=== PATIENT | female | born 1980 | race Caucasian/White ===

== ENCOUNTER 2022-11-26 12:02 | Emergency (ER) | payer OTHER, SELFPAY ==
[2022-11-26 12:14] VITALS: BP 124/95; PULSE 90; RESP 20; TEMP 36.6; O2SAT 98; BMI 33.4
[2022-11-26 12:59] LABS: Internal Control Within Normal Limits; Strep A Antigen Screen Negative
--- NOTE | 2022-11-26 14:59 | ED.URI1 ---
HPI - URI/Sore Throat General Chief Complaint: Upper Respiratory Infection Stated Complaint: sore throat Time Seen by Provider: 11/26/22 14:59 Source: patient History of Present Illness HPI Narrative: Patient presents to emergency department complaining of nasal congestion, runny nose and sore throat. She states she has a cough which is nonproductive. She denies any difficulty swallowing but it hurts when she swallows. She's had chills denies any fever. Symptoms have been ongoing for since yesterday morning. She denies any wheezing or difficulty breathing. She denies any chest pain. She denies any nausea, vomiting, diarrhea, constipation, abdominal pain. She denies any flank pain, hematuria, dysuria. Patient has a history of ALLERGIES. She denies her eyes being itchy or having pain. She denies any rashes. Related Data Previous Rx's Medication Instructions Recorded cetirizine 10 mg tablet (Zyrtec) 10 mg PO DAILY PRN congestion #20 11/26/22 tabs fluticasone propionate 50 1 spray intranasal DAILY PRN nasal 11/26/22 mcg/actuation nasal congestion #16 grams spray,suspension (Flonase Allergy Relief) Allergies Allergy/AdvReac Type Severity Reaction Status Date / Time No Known Drug Allergies Allergy Verified 11/26/22 12:13 Review of Systems ROS Narrative ROS: Unless otherwise stated in this report the patient's positive and negative responses for review of systems for constitutional, eyes, ENT, cardiovascular, respiratory, gastrointestinal, neurological, , musculoskeletal and integument systems and related systems to the presenting problem are either stated in the history of present illness or were not pertinent or were negative for the symptoms and/or complaints related to the presenting medical problem. [facility] Social History Smoking status: Heavy tobacco smoker Exam Narrative Exam Narrative: Nurses notes and vital signs reviewed and patient is not hypoxic. General: Nontoxic, Well-appearing and in no apparent distress. Skin: Warm, dry, no pallor noted. No Rash Head: Normocephalic, atraumatic. Neck: Supple, non-tender. Eye: Pupils are equal, round and EOMI. No scleral icterus. Ears, Nose, Mouth, and Throat: TM clear, Mild posterior oropharynx erythema Postnasal drip, nasal mucosal hypertrophy, uvula is mid-line Oral mucosa is moist, Bilateral maxillary sinus pressure mild erythema noted. Mild tenderness to palpation. Cardiovascular: Regular Rate and Rhythm without murmur, gallop or rub. Respiratory: No accessory muscle use or respiratory distress. Lungs are clear to auscultation, no wheezing, rales or rhonchi Chest Wall: no tenderness Back: No midline thoracic or lumbar vertebral tenderness. No CVA tenderness Musculoskeletal: normal ROM, no calf or popliteal tenderness, no lower extremity edema/swelling GI: Abdomen is soft, non-distended. Normal bowel sounds. No masses appreciated. No tenderness to palpation. No rebound, guarding, or rigidity noted. Neurological: A&O x4. No cranial nerve dysfunction observed. No truncal ataxia. Moves all extremities. Sensation intact. Psychiatric: Cooperative and interactive. Normal mood and affect. Constitutional Vital Signs - 24 hr 11/26/22 12:14 Temperature 98 F Pulse Rate [Monitor] 90 Respiratory Rate 20 Blood Pressure [Left Arm] 124/95 H Pulse Oximetry 98 Oxygen Delivery Method Room Air Course Vital Signs Vital signs: Vital Signs Temperature 98 F 11/26/22 12:14 Pulse Rate 90 11/26/22 12:14 Respiratory Rate 20 11/26/22 12:14 Blood Pressure 124/95 H 11/26/22 12:14 Pulse Oximetry 98 11/26/22 12:14 Oxygen Delivery Method Room Air 11/26/22 12:14 Temperature 97.7 F 11/26/22 15:04 Pulse Rate 71 11/26/22 15:04 Respiratory Rate 16 11/26/22 15:08 Blood Pressure 151/103 H 11/26/22 15:04 Pulse Oximetry 98 11/26/22 15:08 Oxygen Delivery Method Room Air 11/26/22 15:08 MDM - URI/Sore Throat MDM Narrative Medical decision making narrative: The results discussed with patient. Patient wanted to make sure she did not have strep. There were no subsequent sick contacts. She was advised to take Zyrtec and Flonase. History and physical consistent with a viral etiology. Versus ALLERGIC rhinitis. The patient was given a work note. At this time the patient is without objective evidence of an acute process requiring hospitalization or inpatient management. The patient has remained hemodynamically stable. No additional indication for emergent studies at this time. I answered all questions. Discussed discharge instructions including standard anticipatory guidance and what should prompt a return to the emergency department, including if they get worse are not getting better or develops any new or concerning symptoms. I've given them specific time frame in which to follow-up, and who to follow-up with. The patient demonstrates understanding. Patient is nontoxic and stable for discharge with outpatient follow-up. This note was created with the assistance of a speech recognition program. Although the intention is to generate documents that actually reflects the content of the visit, no guarantees can be provided that every mistake has been identified and corrected by editing. Differential Diagnosis Differential diagnosis: Likely upper respiratory infection, otitis media, sinusitis, viral infection, bronchitis, influenza and pharyngitis Medical Records Attestation: I reviewed the patient's medical records. Lab Data Attestation: I reviewed the patient's lab results. Labs: Lab Results 11/26/22 Range/Units 12:20 Streptococcus Screen Negative Discharge Plan Discharge Chief Complaint: Upper Respiratory Infection Clinical Impression: Upper respiratory infection, Pharyngitis Patient Disposition: Home, Self-Care Time of Disposition Decision: 15:00 Condition: Good Prescriptions / Home Meds: New fluticasone propionate [Flonase Allergy Relief] 50 mcg/actuation spray,suspension 1 spray intranasal DAILY PRN (Reason: nasal congestion) Qty: 16 0RF Rx Instructions: administer into each nostril cetirizine [Zyrtec] 10 mg tablet 10 mg PO DAILY PRN (Reason: congestion) Qty: 20 0RF Instructions: Pharyngitis (ED) Stand Alone Forms: Portal Instructions Referrals: Physician,Non-Staff, MD [Primary Care Provider] - 1 week Follow Up Appointments: pcp list Discharge Date/Time: 11/26/22 15:08
[2022-11-26 15:04] VITALS: BP 151/103; PULSE 71; RESP 16; TEMP 36.5; O2SAT 96
[2022-11-26 15:08] VITALS: RESP 16; O2SAT 98
== END 2022-11-26 15:08 | disposition home or self-care (01) ==
PROVIDERS: Emergency Provider Emergency Medicine
DX: J02.9 Acute pharyngitis, unspecified (principal); J06.9 Acute upper respiratory infection, unspecified; F17.210 Nicotine dependence, cigarettes, uncomplicated
CPT/HCPCS: 87081; 87804; 87880; 99283

== ENCOUNTER 2023-05-15 09:46 | Emergency (ER) | payer OTHER, SELFPAY ==
[2023-05-15 09:51] VITALS: BP 122/89; PULSE 109; RESP 18; TEMP 36.9; O2SAT 97; BMI 32.2
--- NOTE | 2023-05-15 10:24 | CT_ITS ---
The [address] [address] Patient Name: ELIANA TOBAR MRN: [id number] date: 1980 Sex: F Assigned Patient Location: ER Current Patient Location: ER Accession/Order Number: [id number] Exam Date: 05/15/2023 10:55 Report Date: 05/15/2023 11:46 At the request of: LARISA GREGORY Procedure: CT abdomen pelvis w con EXAMINATION: CT abdomen pelvis w con, 05/15/2023 10:55 AM EST HISTORY: left sided abdominal pain, vomiting, diarrhea COMPARISON: None. TECHNIQUE: CT of the abdomen, and pelvis was performed following administration of IV contrast. Oral contrast was not administered prior to the examination. Dose reduction techniques were achieved by using automated exposure control and/or adjustment of mA and/or kV according to patient size and/or use of iterative reconstruction technique. FINDINGS: Lung Bases: Normal. Liver: Normal size and contour. Question steatosis. Biliary tree: Normal. Gallbladder: Normal. Spleen: Normal. Pancreas: Normal. Adrenal glands: Normal. Kidneys and ureters: Normal. Bladder: Normal. Reproductive organs: Hysterectomy. Few prominent right-sided likely physiologic ovarian cysts. No suspicious adnexal mass. Gastrointestinal tract: Nondilated. The appendix is normal. Peritoneum/retroperitoneum: No free fluid or gas. Vasculature: Minimal atherosclerosis without aneurysm. Lymph nodes: Normal. Abdominal wall: No acute findings Musculoskeletal: Degenerative change of the spine. CT/CT abdomen pelvis w con IMPRESSION: 1. No acute findings within the abdomen and pelvis. Electronically authenticated by: KATHRYN GARCIA Date: 05/15/2023 11:46
--- NOTE | 2023-05-15 10:25 | ED_ITS ---
HPI - Abdominal Pain General Chief Complaint: Abdominal Pain Stated Complaint: ABDOMINAL PAIN Time Seen by Provider: 05/15/23 09:57 Source: patient Mode of arrival: walk-in Limitations: no limitations History of Present Illness HPI narrative: Patient developed generalized abdominal pain3 days ago. The next day she developed nausea and vomiting throughout the day yesterday. She also began having diarrhea yesterday, when the pain became focal in the left side, especially the LUQ. No urinary symptoms. PSHx includes appendectomy and hysterectomy. No fever or chills. She last ate 2 days ago. Related Data Previous Rx's Medication Instructions Recorded cetirizine 10 mg tablet (Zyrtec) 10 mg PO DAILY PRN congestion #20 11/26/22 tabs fluticasone propionate 50 1 spray intranasal DAILY PRN nasal 11/26/22 mcg/actuation nasal congestion #16 grams spray,suspension (Flonase Allergy Relief) hyoscyamine sulfate 0.125 mg 0.125 mg PO Q6H PRN abdominal pain 05/15/23 sublingual tablet (Levsin/SL) #20 tabs ondansetron 4 mg disintegrating 4 mg PO Q6H PRN nausea and 05/15/23 tablet vomiting #20 tabs Allergies Allergy/AdvReac Type Severity Reaction Status Date / Time No Known Drug Allergies Allergy Verified 05/15/23 09:54 [facility] Social History Smoking status: Current every day smoker Exam Narrative Exam Narrative: Nurses notes and vital signs reviewed and patient is not hypoxic. afebrile General: Well-appearing and in no apparent distress. Skin: Warm, dry, no pallor noted. No rash. Head: Normocephalic, atraumatic. Neck: Supple, non-tender. Eye: Pupils are equal, round and EOMI. No scleral icterus. Ears, Nose, Mouth, and Throat: Oral mucosa is dry Cardiovascular: Tachycardia. Respiratory: No accessory muscle use or respiratory distress. Lungs are clear to auscultation, no wheezing, rales or rhonchi Back: No CVA tenderness Musculoskeletal: normal ROM GI: Abdomen is soft, non-distended. Normal bowel sounds. No masses appreciated. Left sided tenderness to palpation. No rebound, guarding, or rigidity noted. Neurological: A&O x4. No cranial nerve dysfunction observed. No truncal ataxia. Moves all extremities. Sensation intact. Psychiatric: Cooperative and interactive. Normal mood and affect. Constitutional Vital Signs, click to edit/add: Last Vital Signs Temp 98.4 F 05/15/23 09:51 Pulse 109 H 05/15/23 09:51 Resp 18 05/15/23 09:51 BP 122/89 05/15/23 09:51 Pulse Ox 97 05/15/23 09:51 O2 Del Method Room Air 05/15/23 09:51 Course Vital Signs Vital signs: Vital Signs Temperature 98.4 F 05/15/23 09:51 Pulse Rate 109 H 05/15/23 09:51 Respiratory Rate 18 05/15/23 09:51 Blood Pressure 122/89 05/15/23 09:51 Pulse Oximetry 97 05/15/23 09:51 Oxygen Delivery Method Room Air 05/15/23 09:51 Temperature 98.4 F 05/15/23 09:51 Pulse Rate 109 H 05/15/23 09:51 Respiratory Rate 18 05/15/23 09:51 Blood Pressure 122/89 05/15/23 09:51 Pulse Oximetry 97 05/15/23 09:51 Oxygen Delivery Method Room Air 05/15/23 09:51 MDM - Abdominal Pain MDM Narrative Medical decision making narrative: peripheral IV established. Blood was drawn and sent for testing. Urine also obtained. Patient was given normal saline IV fluid, IV Zofran and sublingual Levsin. WBC 11k. Unremarkable CMP. UA appears to be a contaminated sample. CT does not reveal any acute findings to account for the patient's symptoms, per radiologist reading. Results discussed with the patient and she was given reassurance. She felt better after ED treatment. She was discharged home with prescriptions for Levsin and Zofran. Discussed BRAT diet and reasons to return to the ED. Lab Data Attestation: I reviewed the patient's lab results. Labs: Lab Results 05/15/23 Range/Units 10:00 WBC 11.2 H (4.0-11.0) 10^3/uL RBC 4.76 (4.20-5.40) 10^6/uL Hgb 15.0 (12.0-16.0) g/dL Hct 45.1 (36.0-48.0) % MCV 94.7 (81.0-99.0) fL MCH 31.5 (26.7-34.0) pg MCHC 33.3 (29.9-35.2) g/dL RDW 12.2 (11.0-15.0) % Plt Count 276 (150-450) 10^3/uL MPV 11.5 (9.5-13.5) fL Neut % (Auto) 62.8 (43.0-75.0) % Lymph % (Auto) 29.6 (20.5-60.0) % [place] % (Auto) 6.1 (1.7-12.0) % Eos % (Auto) 0.8 L (0.9-7.0) % Baso % (Auto) 0.4 (0.2-2.0) % Neut # (Auto) 7.0 H (1.4-6.5) 10^3/uL Lymph # (Auto) 3.3 (1.2-3.8) 10^3/uL [place] # (Auto) 0.7 (0.3-0.8) 10^3/uL Eos # (Auto) 0.1 (0.0-0.7) 10^3/uL Baso # (Auto) 0.0 (0.0-0.1) 10^3/uL Abs Immat Gran (auto) 0.03 (0.00-0.03) 10^3/uL Imm/Tot Granulo (auto) 0.3 (0.0-0.5) % Sodium 137 (136-145) mmol/L Potassium 3.9 (3.5-5.1) mmol/L Chloride 100 (98-107) mmol/L Carbon Dioxide 23.7 (21.0-32.0) mmol/L Anion Gap 17.2 BUN 10.0 (7.0-18.0) mg/dL Creatinine 0.91 (0.55-1.02) mg/dL Est GFR ( Amer) >60 (>=60) Est GFR (Non-Af Amer) >60 (>=60) BUN/Creatinine Ratio 11.0 Glucose 144 H (74-106) mg/dL Calcium 8.6 (8.5-10.1) mg/dL Total Bilirubin 0.6 (0.2-1.0) mg/dL AST 16 (15-37) U/L ALT 20 (14-59) U/L Alkaline Phosphatase 64 (46-116) U/L Total Protein 7.4 (6.4-8.2) g/dL Albumin 3.8 (3.4-5.0) g/dL Globulin 3.6 g/dL Albumin/Globulin Ratio 1.1 Lipase 41.0 (16.0-77.0) U/L Urine Color Yellow (YELLOW) Urine Clarity Clear (CLEAR) Urine pH 6.0 (5.0-9.0) Ur Specific [place] >=1.030 A (1.005-1.025) Urine Protein Negative (NEG/TRACE) mg/dL Urine Glucose (UA) Negative (NEGATIVE) mg/dL Urine Ketones Negative (NEGATIVE) mg/dL Urine Occult Blood Moderate A (NEGATIVE) Urine Nitrite Negative (NEGATIVE) Urine Bilirubin Negative (NEGATIVE) Urine Urobilinogen 0.2 (0.2-1.0) EU/dL Ur Leukocyte Esterase Negative (NEGATIVE) Urine RBC 2-5 A (0-2) #/HPF Urine WBC None seen (NONE SEEN) #/HPF Ur Squamous Epith Cells Moderate A (NONE/RARE) #/LPF Urine Bacteria Trace A (NONE SEEN) #/HPF Urine Mucus None seen (NONE SEEN) Ur Culture Indicated? No Imaging Data CT scan - abdomen: Radiologist's impression: Patient Name: ELIANA TBOAR MRN: [id number] date: 1980 Sex: F Assigned Patient Location: Current Patient Location: Accession/Order Number: [id number] Exam Date: 05/15/2023 10:55 Report Date: 05/15/2023 11:46 At the request of: LARISA GREGORY Procedure: CT abdomen pelvis w con EXAMINATION: CT abdomen pelvis w con, 05/15/2023 10:55 AM EST HISTORY: left sided abdominal pain, vomiting, diarrhea COMPARISON: None. TECHNIQUE: CT of the abdomen, and pelvis was performed following administration of IV contrast. Oral contrast was not administered prior to the examination. Dose reduction techniques were achieved by using automated exposure control and/or adjustment of mA and/or kV according to patient size and/or use of iterative reconstruction technique. FINDINGS: Lung Bases: Normal. Liver: Normal size and contour. Question steatosis. Biliary tree: Normal. Gallbladder: Normal. Spleen: Normal. Pancreas: Normal. Adrenal glands: Normal. Kidneys and ureters: Normal. Bladder: Normal. Reproductive organs: Hysterectomy. Few prominent right-sided likely physiologic ovarian cysts. No suspicious adnexal mass. Gastrointestinal tract: Nondilated. The appendix is normal. Peritoneum/retroperitoneum: No free fluid or gas. Vasculature: Minimal atherosclerosis without aneurysm. Lymph nodes: Normal. Abdominal wall: No acute findings Musculoskeletal: Degenerative change of the spine. IMPRESSION: 1. No acute findings within the abdomen and pelvis. Electronically authenticated by: KATHRYN GARCIA Date: 05/15/2023 11:46 Discharge Plan Discharge Chief Complaint: Abdominal Pain Clinical Impression: Gastroenteritis Patient Disposition: Home, Self-Care Time of Disposition Decision: 12:03 Prescriptions / Home Meds: New ondansetron 4 mg tablet,disintegrating 4 mg PO Q6H PRN (Reason: nausea and vomiting) Qty: 20 0RF hyoscyamine sulfate [Levsin/SL] 0.125 mg tablet, sublingual 0.125 mg PO Q6H PRN (Reason: abdominal pain) Qty: 20 0RF No Action fluticasone propionate [Flonase Allergy Relief] 50 mcg/actuation spray,suspension 1 spray intranasal DAILY PRN (Reason: nasal congestion) Qty: 16 0RF Rx Instructions: administer into each nostril cetirizine [Zyrtec] 10 mg tablet 10 mg PO DAILY PRN (Reason: congestion) Qty: 20 0RF Instructions: Acute Nausea and Vomiting (ED), Acute Diarrhea (ED) Stand Alone Forms: Portal Instructions Referrals: Physician,Non-Staff, MD [Primary Care Provider] - 1 week
[2023-05-15] MEDS: 0.9 % SODIUM CHLORIDE 1,000 ML 999 ML IV (10:31)
[2023-05-15] MEDS: HYOSCYAMINE SULFATE 0.125 MG TAB.SUBL SL (10:32)
[2023-05-15] MEDS: ONDANSETRON PF 4 MG/2 ML VIAL IV (10:32)
[2023-05-15 10:43] LABS: Bilirubin Urine NEGATIVE (NEGATIVE); Blood Urine MODERATE (NEGATIVE); Clarity Urine CLEAR (CLEAR); Color Urine YELLOW (YELLOW); Glucose Urine UA NEGATIVE (NEGATIVE); Ketones Urine NEGATIVE (NEGATIVE); Leukocyte Esterase Urine NEGATIVE (NEGATIVE); Nitrite Urine NEGATIVE (NEGATIVE); Protein Urine NEGATIVE (NEG/TRACE); Specific Gravity Urine >=1.030 (1.005-1.025); Urobilinogen Urine 0.2 EU/dL (0.2-1.0)
[2023-05-15 10:56] LABS: Basophils Percent Auto 0.4 % (0.2-2.0); Eosinophils Absolute Auto 0.1 10^3/uL (0.0-0.7); Eosinophils Percent Auto 0.8 % (0.9-7.0); Hematocrit 45.1 % (36.0-48.0); Immature Granulocytes Abs Auto 0.03 10^3/uL (0.00-0.03); Immature Granulocytes Pct Auto 0.3 % (0.0-0.5); Lymphocytes Absolute Auto 3.3 10^3/uL (1.2-3.8); Lymphocytes Percent Auto 29.6 % (20.5-60.0); Mean Corpuscular HGB Conc 33.3 g/dL (29.9-35.2); Mean Corpuscular Hemoglobin 31.5 pg (26.7-34.0); Mean Corpuscular Volume 94.7 fL (81.0-99.0); Mean Platelet Volume 11.5 fL (9.5-13.5); Monocytes Absolute Auto 0.7 10^3/uL (0.3-0.8); Monocytes Percent Auto 6.1 % (1.7-12.0); Neutrophils Percent Auto 62.8 % (43.0-75.0); Platelet Count 276 10^3/uL (150-450); Red Blood Count 4.76 10^6/uL (4.20-5.40); Red Cell Distribution Width 12.2 % (11.0-15.0); White Blood Count 11.2 10^3/uL (4.0-11.0)
[2023-05-15 11:01] LABS: Urine Microscopic Indicated YES
[2023-05-15 11:06] LABS: Bacteria Urine TRACE #/HPF (NONE SEEN); Mucus Urine NONE SEEN (NONE SEEN); Squamous Epithelial Cell Urine MODERATE #/LPF (NONE/RARE); WBC Urine NONE SEEN #/HPF (NONE SEEN)
[2023-05-15 11:08] LABS: Urine Culture Indicated NO
[2023-05-15 11:37] LABS: Alanine Aminotransferase 20 U/L (14-59); Albumin Globulin Ratio 1.1; Albumin Level 3.8 g/dL (3.4-5.0); Alkaline Phosphatase 64 U/L (46-116); Anion Gap 17.2; Aspartate Amino Transferase 16 U/L (15-37); Bilirubin Total 0.6 mg/dL (0.2-1.0); Calcium 8.6 mg/dL (8.5-10.1); Carbon Dioxide 23.7 mmol/L (21.0-32.0); Chloride 100 mmol/L (98-107); Estimated GFR (African America >60 (>=60); Estimated GFR (Non-African Ame >60 (>=60); Globulin 3.6 g/dL; Glucose 144 mg/dL (74-106); Potassium 3.9 mmol/L (3.5-5.1); Sodium 137 mmol/L (136-145); Total Protein 7.4 g/dL (6.4-8.2)
[2023-05-15 12:14] VITALS: BP 102/76; PULSE 67; RESP 16; O2SAT 97
== END 2023-05-15 12:15 | disposition home or self-care (01) ==
PROVIDERS: Emergency Provider Emergency Medicine
DX: K52.9 Noninfective gastroenteritis and colitis, unspecified (principal); F17.210 Nicotine dependence, cigarettes, uncomplicated
CPT/HCPCS: 36415; 74177; 80053; 81001; 83690; 85025; 96361; 96374; 99285; Q9967